=== PATIENT | male | born 1950 | race Caucasian/White ===

== ENCOUNTER → 2018-11-29 | Outpatient (CLI) | payer BC ==
[~2018-11-29] MED LIST: ASPI325T8 PO; CRESTOR10 MG PO; DAPA10TA PO; FELO10TA PO; INSU100V SQ; INSU100V13 SQ; LOSA-73 PO; METF10007 PO; SEMA1PEN SQ; SOTA80TA48 PO
--- NOTE | 2018-11-29 13:58 | RAD ---
MR#: [id number] Date of Study: 11/29/2018 Ordering Physician: SANDIE MARTÍNEZ, Referring Physician: ISHMAEL CARDONA Tech: RT Can (R) (N) APPROVED REPORT Test Type: Exercise Stress Nurse/Tech: Dixie Ortiz R.N. Test Indications: chest discomfort Cardiac History: Hypertension, Diabetes Medications: Zocor Medical History: See Electronic Medical Record Resting ECG: NSR Resting Heart Rate: 67 bpm Resting Blood Pressure: 151/87mmHg Pretest Chest Pain: No chest pain Nurse/Tech Notes S1S2. lungs sound clear Consent: The procedure was explained to the patient in lay terms. Informed consent was witnessed. Arthur eout was entered into [employer]. History and Stress Test performed by Dixie Ortiz R.N. Stress Symptoms Dyspnea, Fatigue POST EXERCISE Reason for Termination: Reached target heart rate Target HR: 130 Max HR: 136 bpm Exercise duration: 8 min min:sec, 3 Stage Max Blood Pressure: 191/91mmHg Blood Pressure response to exercise: Normal blood pressure response during stress. Chest Pain: No. Arrhythmia: Yes. 1 PVC znd 1 Couplet noted in recovery ST Change: No. INTERPRETATION Stress EKG Conclusion: Baseline EKG showed sinus rhythm. No ischemic changes at peak stress. No arr hythmias. Imaging Protocol IMAGE PROTOCOL: Rest Tc-99m/stress Tc-99m 1 day Rest: Stress: Viability: Radiopharm.Tc99m RvwkjuszyXd05z Sestamibi Ahlw60rRt 31.1mCi Duration 13min. 13min. Img Date 11/29/2018 11/29/2018 Inj-Img [id number]. 60min. Rest Admin Site:IV - Left AntecubitalAdministrator:KALE Kelly, ARRT (R)(N) Stress Admin Site: IV - Left AntecubitalAdministrator: RT Can (R)(N) STRESS DATA End Diast. Vol.113.0mlLVEDV index BSA48.0ml End Syst. Vol.41.0mlLVESV index BSA17.0ml Myocardial Sara297.0gEject. Ankgrqgm30.0% Stress Scores Regional WT1.00Summed WT15.00 Regional WM0.00Summed WM2.00 Study quality was good. Left Ventricular size was Normal at Rest and Stress. Lung uptake was . Left Ventricular ejection fraction is 64%. The rest and stress images show normal perfusion, normal contraction and thickening. LV Perf. Quant 17 Seg. SSS0.00 17 Seg. SRS0.00 17 Seg. SDS0.00 Stress Defect Extent (% LAD)0.00Rest Defect Extent (% LAD)0.00Rev. Defect Extent (% LAD)0.00 Stress Defect Extent (% LCX) 0.00Rest Defect Extent (% LCX)0.00Rev. Defect Extent (% LCX)0.00 Stress Defect Extent (% RCA)0.00Rest Defect Extent (% RCA)0.00Rev. Defect Extent (% RCA)0.00 Stress Defect Extent (% NAKIA)0.00Rest Defect Extent (% NAKIA)0.00Rev. Defect Extent (% NAKIA)0.00 Conclusion 1. Treadmill exercise cardioisotope stress test did not show any evidence of ischemia or infarct. 2. Normal left ventricular systolic function with ejection fraction calculated at 64%. 3. Low risk for cardiac events. Signed by : Justice Conteh, Electronically Approved : 11/29/2018 13:57:59
== END | disposition home or self-care (01) ==
LOC: NM 08:34
PROVIDERS: ATTEND Internal Medicine Cardiovascular Disease
DX: I49.3 Ventricular premature depolarization (principal); R07.89 Other chest pain; I10 Essential (primary) hypertension; E11.9 Type 2 diabetes mellitus without complications
CPT/HCPCS: 78452; 93017; A9500

== ENCOUNTER → 2018-12-05 | Outpatient (CLI) | payer BC ==
--- NOTE | 2018-12-05 11:45 | CARD ---
MR#: [id number] Date of Study: 12/05/2018 Ordering Physician: SANDIE MARTNÍEZ, Referring Physician: SANDIE MARTÍNEZ, Tech: Keisha Christensen [facility] APPROVED REPORT EXAM: Two-dimensional and M-mode echocardiogram with Doppler and color Doppler. Other Information Quality : Good INDICATION Chest Pain 2D DIMENSIONS Left Atrium(2D)4.2 (1.6-4.0cm)IVSd1.3 (0.7-1.1cm) Aortic Root(2D)3.3 (2.0-3.7cm)LVDd5.7 (3.9-5.9cm) LVOT Diameter2.2 (1.8-2.4cm)PWd1.1 (0.7-1.1cm) LVDs4.5 (2.5-4.0cm)FS (%) 20.7 % SV67.0 mlLVEF(%)55.0 (>50%) Aortic Valve AoV Peak Randal.109.2cm/sAoV VTI21.0cm AO Peak GR.4.8mmHgLVOT Peak Randal.106.0cm/s AO Mean GR.3mmHgAVA (VMAX)3.81cm2 DUSTY (VTI)3.70cm2 Mitral Valve MV E Kphrpldc42.2cm/sMV DECEL FTCF664of MV A Minseetu55.1cm/sE/A Ratio1.1 Tricuspid Valve TR P. Nkzmfzjn848fg/sRAP GQEHVDPC9kdKz TR Peak Gr.34dfZpLPVG99knTv Pulmonary Vein S1 Ohvwbere93.7cm/sD2 Yoqinpan39.0cm/s LEFT VENTRICLE The left ventricle is normal size. There is mild concentric left ventricular hypertrophy. The left ve ntricular systolic function is normal and the ejection fraction is within normal range. The Ejection Fraction is 55-60%. There is normal LV segmental wall motion. Transmitral Doppler flow pattern is Gra de I-abnormal relaxation pattern. RIGHT VENTRICLE The right ventricle is normal size. The right ventricular systolic function is normal. ATRIA The left atrium size is normal. The right atrium size is normal. The interatrial septum is intact wit h no evidence for an atrial septal defect or patent foramen ovale as noted on 2-D or Doppler imaging. AORTIC VALVE The aortic valve is calcified but opens well. Doppler and Color Flow revealed no significant aortic r egurgitation. There is no significant aortic valvular stenosis. MITRAL VALVE The mitral valve is calcified but opens well. Mitral annular calcification is mild. There is no evide nce of mitral valve prolapse. There is no mitral valve stenosis. Doppler and Color-flow revealed trac e mitral regurgitation. TRICUSPID VALVE The tricuspid valve is normal in structure and function. Doppler and Color Flow revealed trace tricus pid regurgitation. The PA pressure was estimated at 19 mmHg. There is no tricuspid valve stenosis. PULMONIC VALVE The pulmonic valve is not well visualized. Doppler and Color Flow revealed no pulmonic valvular regur gitation. There is no pulmonic valvular stenosis. GREAT VESSELS The aortic root is normal in size. The ascending aorta is normal in size. The IVC is normal in size a nd collapses >50% with inspiration. PERICARDIAL EFFUSION There is no evidence of significant pericardial effusion. Critical Notification Critical Value: No <Conclusion> The left ventricle is normal size. The left ventricular systolic function is normal and the ejection fraction is within normal range. The Ejection Fraction is 55-60%. There is mild concentric left ventricular hypertrophy. There is no significant aortic valvular stenosis. Doppler and Color Flow revealed no significant aortic regurgitation. Doppler and Color-flow revealed trace mitral regurgitation. Doppler and Color Flow revealed trace tricuspid regurgitation. The PA pressure was estimated at 19 mmHg. Signed by : Joaquin Jon MD Electronically Approved : 12/05/2018 11:45:28
== END | disposition home or self-care (01) ==
LOC: ECHO 09:56
PROVIDERS: ATTEND Internal Medicine Cardiovascular Disease
DX: I08.0 Rheumatic disorders of both mitral and aortic valves (principal)
CPT/HCPCS: 93306